=== PATIENT | female | born 1980 | race Caucasian/White ===

== ENCOUNTER 2016-05-09 15:57 | Emergency (ER) | payer MEDICAID ==
--- NOTE | 2016-05-09 16:08 | ER Document Report ---
ED Medical Screen (RME) - General Stated Complaint: RIGHT FLANK PAIN Notes: Patient complains of right flank pain 1 week. Does have a history of kidney stones, and states she has had multiple surgeries, kidney. Fever unknown, patient complains of nausea without vomiting. Patient states that her urine is very dark even though she is drinking plenty of water. I have greeted and performed a rapid initial assessment of this patient. A comprehensive ED assessment and evaluation of the patient, analysis of test results and completion of the medical decision making process will be conducted by additional ED providers. TRAVEL OUTSIDE OF THE [place] IN LAST 30 DAYS: No - Related Data Allergies/Adverse Reactions: sumatriptan [From Imitrex] Allergy (Intermediate, Verified 05/09/16 16:06) VOMITING sumatriptan succinate [From Imitrex] Allergy (Intermediate, Verified 05/09/16 16 :06) VOMITING adhesive [Adhesive] Allergy (Mild, Verified 05/09/16 16:06) Sulfa (Sulfonamide Antibiotics) Allergy (Mild, Verified 05/09/16 16:06) Hives Iodinated Contrast Media - Oral and [IV Dye, Iodine Containing] Allergy ( Verified 05/09/16 16:06) Latex, Natural Rubber Allergy (Verified 05/09/16 16:06) latex [Latex] Adverse Reaction (Mild, Verified 05/09/16 16:06) rash phenazopyridine HCl [From Pyridium] Adverse Reaction (Verified 05/09/16 16:06) VOMITING IVP DYE Allergy (Intermediate, Uncoded 05/09/16 16:06) Hives Past Medical History - Social History Family history: Reviewed & Not Pertinent - Past Medical History Cardiac Medical History: Denies: Hx Coronary Artery Disease, Hx Heart Attack Comment Only: Hx Hypertension - low Pulmonary Medical History: Reports: Hx Asthma - worse as child , Hx Bronchitis, Hx Pneumonia Denies: Hx COPD Neurological Medical History: Reports: Hx Migraine. Denies: Hx Cerebrovascular Accident, Hx Seizures Renal/ Medical History: Reports: Hx Kidney Stones Musculoskeltal Medical History: Denies Hx Arthritis Skin Medical History: Denies Hx MRSA Psychiatric Medical History: Reports: Hx Depression Past Surgical History: Reports: Hx Gynecologic Surgery - uterine polyps, Hx Kidney (Renal Surgery) - reconstructive w/ stent placement, Hx Orthopedic Surgery - right foot x4, Hx Tonsillectomy, Hx Urinary Tract Surgery - SEE ABOVE. Denies: Hx Hysterectomy, Hx Pacemaker - Immunizations Hx Diphtheria, Pertussis, Tetanus Vaccination: Yes Physical Exam - Vital signs Vitals: Temp Pulse Resp BP Pulse Ox 98.5 F 82 18 128/75 H 100 05/09/16 16:01 05/09/16 16:01 05/09/16 16:01 05/09/16 16:01 05/09/16 16:01 - General General appearance: Appears well, Alert In distress: None Course - Vital Signs Vital signs: Temp Pulse Resp BP Pulse Ox 98.5 F 82 18 128/75 H 100 05/09/16 16:01 05/09/16 16:01 05/09/16 16:01 05/09/16 16:01 05/09/16 16:01
[2016-05-09 16:53] LABS: APPEARANCE,URINE SLIGHTLY-CLOUDY; BILIRUBIN,URINE NEGATIVE (NEGATIVE); GLUCOSE, URINE NEGATIVE (NEGATIVE); KETONES,URINE 20 mg/dL (NEGATIVE); LEUKOCYTE ESTERASE,URINE NEGATIVE (NEGATIVE); NITRITE,URINE NEGATIVE (NEGATIVE); PROTEIN,URINE 30 mg/dL (NEGATIVE); URINE SPECIFIC GRAVITY 1.038; UROBILINOGEN,URINE NEGATIVE mg/dL (<2.0)
[2016-05-09] MEDS ORDERED: OXYCODONE-ACETAMINOPHEN 5-325 MG TABLET PO ONE (19:14)
[2016-05-09] MEDS ORDERED: ONDANSETRON 4 MG TAB.RAPDIS PO ONE (19:14)
--- NOTE | 2016-05-09 19:15 | ER Document Report ---
ED GI/ - General Chief Complaint: Flank Pain Stated Complaint: RIGHT FLANK PAIN Time seen by provider: 19:14 Notes: Patient is a 36-year-old female that comes emergency department for chief complaint of right flank pain that radiates around to her mid to lower abdomen, symptoms have been going on with or worsening with nausea. She denies vomiting or fever. She denies vaginal bleeding or discharge. She has a history of multiple kidney stones, has had surgeries to increase the size of her "kidney outflow", she is to see urology at [facility] next reportedly. She has had an appendectomy. TRAVEL OUTSIDE OF THE [place] IN LAST 30 DAYS: No - Related Data Allergies/Adverse Reactions: sumatriptan [From Imitrex] Allergy (Intermediate, Verified 05/09/16 16:06) VOMITING sumatriptan succinate [From Imitrex] Allergy (Intermediate, Verified 05/09/16 16 :06) VOMITING adhesive [Adhesive] Allergy (Mild, Verified 05/09/16 16:06) Sulfa (Sulfonamide Antibiotics) Allergy (Mild, Verified 05/09/16 16:06) Hives Iodinated Contrast Media - Oral and [IV Dye, Iodine Containing] Allergy ( Verified 05/09/16 16:06) Latex, Natural Rubber Allergy (Verified 05/09/16 16:06) latex [Latex] Adverse Reaction (Mild, Verified 05/09/16 16:06) rash phenazopyridine HCl [From Pyridium] Adverse Reaction (Verified 05/09/16 16:06) VOMITING IVP DYE Allergy (Intermediate, Uncoded 05/09/16 16:06) Hives Past Medical History - General Information source: Patient - Social History Smoking Status: Current Every Day Smoker Chew tobacco use (# tins/day): No Frequency of alcohol use: None Drug Abuse: None Lives with: Spouse/Significant other Family History: Reviewed & Not Pertinent Patient has suicidal ideation: No Patient has homicidal ideation: No - Past Medical History Cardiac Medical History: Denies: Hx Coronary Artery Disease, Hx Heart Attack Comment Only: Hx Hypertension - low Pulmonary Medical History: Reports: Hx Asthma - worse as child , Hx Bronchitis, Hx Pneumonia Denies: Hx COPD Neurological Medical History: Reports: Hx Migraine. Denies: Hx Cerebrovascular Accident, Hx Seizures Renal/ Medical History: Reports: Hx Kidney Stones. Denies: Hx Peritoneal Dialysis Musculoskeltal Medical History: Denies Hx Arthritis Skin Medical History: Denies Hx MRSA Psychiatric Medical History: Reports: Hx Depression Past Surgical History: Reports: Hx Gynecologic Surgery - uterine polyps, Hx Kidney (Renal Surgery) - reconstructive w/ stent placement, Hx Orthopedic Surgery - right foot x4, Hx Tonsillectomy, Hx Urinary Tract Surgery - SEE ABOVE. Denies: Hx Hysterectomy, Hx Pacemaker - Immunizations Hx Diphtheria, Pertussis, Tetanus Vaccination: Yes Review of Systems - Review of Systems Constitutional: No symptoms reported EENT: No symptoms reported Cardiovascular: No symptoms reported Respiratory: No symptoms reported Gastrointestinal: See HPI Genitourinary: See HPI Female Genitourinary: No symptoms reported Musculoskeletal: No symptoms reported Skin: No symptoms reported Hematologic/Lymphatic: No symptoms reported Neurological/Psychological: No symptoms reported Physical Exam - Vital signs Vitals: Temp Pulse Resp BP Pulse Ox 98.5 F 82 18 128/75 H 100 05/09/16 16:01 05/09/16 16:01 05/09/16 16:01 05/09/16 16:01 05/09/16 16:01 Interpretation: Normal - General General appearance: Alert In distress: None - HEENT Head: Normocephalic, Atraumatic Eyes: Normal Pupils: PERRL Mouth/Lips: Normal Mucous membranes: Normal. No: Dry Pharynx: Normal Neck: Normal - Respiratory Respiratory status: No respiratory distress Chest status: Nontender Breath sounds: Normal Chest palpation: Normal - Cardiovascular Rhythm: Regular. No: Tachycardia Heart sounds: Normal auscultation, S1 appreciated, S2 appreciated Murmur: No - Abdominal Inspection: Normal Distension: No distension Bowel sounds: Normal Tenderness: Tender - There is mild right mid to lower abdominal tenderness without guarding, otherwise soft and benign abdomen Organomegaly: No organomegaly - Back Back: CVA tenderness - Right-sided CVA tenderness, left side is unremarkable. No: Vertebra tenderness - Extremities General upper extremity: Normal inspection, Nontender, Normal color, Normal ROM , Normal temperature General lower extremity: Normal inspection, Nontender, Normal color, Normal ROM , Normal temperature, Normal weight bearing. No: Neal's sign - Neurological Neuro grossly intact: Yes Cognition: Normal Orientation: AAOx4 [place] Coma Scale Eye Opening: Spontaneous [place] Coma Scale Verbal: Oriented [place] Coma Scale Motor: Obeys Commands [place] Coma Scale Total: 15 Speech: Normal Motor strength normal: LUE, RUE, LLE, RLE Sensory: Normal - Psychological Associated symptoms: Normal affect, Normal mood - Skin Skin Temperature: Warm Skin Moisture: Dry Skin Color: Normal Course - Re-evaluation Re-evalutation: There is slight hydronephrosis on the side of patient's pain, after pain medication patient sitting up, smiling, tolerating fluids. Urine is not indicated infection, blood work is unremarkable. Patient is very well- appearing and has no fever, tachycardia, or hypotension. Patient will be discharged on symptom management, patient already has [facility] urology follow-up of her situation, discussed return precautions in detail, patient states understanding and agreement. - Vital Signs Vital signs: Temp Pulse Resp BP Pulse Ox 98.0 F 86 16 109/62 100 05/09/16 22:03 05/09/16 22:03 05/09/16 22:03 05/09/16 22:03 05/09/16 22:03 - Laboratory Result Diagrams: 05/09/16 16:20 05/09/16 16:20 Laboratory results interpreted by me: 05/09/16 05/09/16 05/09/16 16:20 16:20 16:20 RDW 14.4 H Creatinine 0.44 L Urine Protein 30 H Urine Ketones 20 H Urine Ascorbic Acid 20 H Discharge - Discharge Clinical Impression: Right flank pain Condition: Stable Disposition: HOME, SELF-CARE Additional Instructions: There are kidney stones present, there appears to be some swelling on the right kidney which is very mild, this is most likely from your ongoing outflow problem , take the medications, follow closely with [facility] urology. Return immediately if he develops any concerning worsening symptoms including fever, vomiting, severe pain, etc. Prescriptions: Hydrocodone/Acetaminophen [[place] 5-325 mg Tablet] 1 - 2 tab PO ASDIR #12 tablet Referrals: MANNY GARCIA MD [Primary Care Provider] - Follow up as needed
[2016-05-09 19:53] LABS: ABSOLUTE LYMPHOCYTES (AUTO) 1.3 10^3/uL (0.5-4.7); ABSOLUTE MONOCYTES (AUTO) 0.3 10^3/uL (0.1-1.4); ABSOLUTE NEUT (AUTO) 5.7 10^3/uL (1.7-8.2); BASOPHILS % (AUTO) 0.3 % (0-2); EOSINOPHILS % (AUTO) 0.3 % (0-6); HEMATOCRIT 36.5 % (36.0-47.0); HEMOGLOBIN 12.2 g/dL (12.0-15.5); HGB HCT DIFFERENCE 0.1; MEAN CORPUSCULAR HGB CONC 33.4 g/dL (32.0-36.0); MEAN CORPUSCULAR VOLUME 90 fl (80-97); MONOCYTES % (AUTO) 4.1 % (3-13); RED BLOOD COUNT 4.07 10^6/uL (3.72-5.28); RED CELL DISTRIBUTION WIDTH 14.4 % (11.5-14.0); SEGMENTED NEUTROPHILS % (AUTO) 77.3 % (42-78); WHITE BLOOD COUNT 7.4 10^3/uL (4.0-10.5)
[2016-05-09 20:14] LABS: ANION GAP 13 (5-19); BLOOD UREA NITROGEN 14 mg/dL (7-20); CALCIUM 10.1 mg/dL (8.4-10.2); CARBON DIOXIDE 29 mmol/L (22-30); CHLORIDE 100 mmol/L (98-107); CREATININE RESULT 0.44 mg/dL (0.52-1.25); GLUCOSE 103 mg/dL (75-110); POTASSIUM 3.8 mmol/L (3.6-5.0); SODIUM 142.4 mmol/L (137-145)
[2016-05-09] MEDS ORDERED: HYDROCODONE/ACETAMINOPHEN 5-325 MG 6 TAB/DSPK PO PRN (21:42)
[2016-05-09 22:26] VITALS: BP 109/62
== END 2016-05-09 22:07 | disposition home or self-care (01) ==
LOC: ER 15:57
DX: R10.9 Unspecified abdominal pain (principal); R10.30 Lower abdominal pain, unspecified; R11.0 Nausea; F17.200 Nicotine dependence, unspecified, uncomplicated
CPT/HCPCS: 99284; 36415; 85025; 81025; 80048; 81001; 76770; S0119

== ENCOUNTER 2016-07-24 08:34 | Emergency (ER) | payer MEDICAID ==
[2016-07-24] MEDS ORDERED: METOCLOPRAMIDE HCL ORAL SOLN 10 MG/10 ML UDCUP PO ONE (10:14)
[2016-07-24] MEDS ORDERED: MAG HYDROX/AL HYDROX/SIMETH SUSP 30 ML UDCUP PO ONE (10:14)
[2016-07-24] MEDS ORDERED: LIDOCAINE 2% VISCOUS SOLN 20 ML UDCUP PO ONE (10:14)
--- NOTE | 2016-07-24 10:24 | ER Document Report ---
ED General - General Mode of Arrival: Ambulatory Information source: Patient TRAVEL OUTSIDE OF THE [place] IN LAST 30 DAYS: No - HPI Patient complains to provider of: Abdominal pain Onset: Last week Onset/Duration: Sudden, Intermittent Associated symptoms: Diarrhea, Nausea, Vomiting <OTONIEL ROGERS - Last Filed: 07/24/16 10:18> <LINWOOD LOO - Last Filed: 08/08/16 09:24> - General Chief Complaint: Upper Abdominal Pain Stated Complaint: RIDE SIDE FLANK PAIN Time Seen by Provider: 07/24/16 09:06 Notes: Patient is a 36-year-old female with history of "kidney problems," presenting to the emergency department with chief complaint of abdominal pain after eating. Patient states that radiates from her umbilical region into her chest and shoulders. Patient also complains of right flank pain, but this is a chronic problem, and it is not different today. Patient denies any dysuria, but admits to intermittent loose stools over the weekend and vomiting 2 which she associates with overheating. (OTONIEL ROGERS) - Related Data Allergies/Adverse Reactions: sumatriptan [From Imitrex] Allergy (Intermediate, Verified 07/24/16 08:42) VOMITING sumatriptan succinate [From Imitrex] Allergy (Intermediate, Verified 07/24/16 08 :42) VOMITING adhesive [Adhesive] Allergy (Mild, Verified 07/24/16 08:42) Sulfa (Sulfonamide Antibiotics) Allergy (Mild, Verified 07/24/16 08:42) Hives Iodinated Contrast- Oral and IV Dye [IV Dye, Iodine Containing] Allergy ( Verified 07/24/16 08:42) Latex, Natural Rubber Allergy (Verified 07/24/16 08:42) latex [Latex] Adverse Reaction (Mild, Verified 07/24/16 08:42) rash phenazopyridine HCl [From Pyridium] Adverse Reaction (Verified 07/24/16 08:42) VOMITING IVP DYE Allergy (Intermediate, Uncoded 07/24/16 08:42) Hives Past Medical History - General Information source: Patient, [facility] Records - Social History Smoking Status: Never Smoker Family History: Reviewed & Not Pertinent Patient has suicidal ideation: No Patient has homicidal ideation: No - Past Medical History Cardiac Medical History: Pulmonary Medical History: Reports: Hx Asthma - worse as child , Hx Bronchitis, Hx Pneumonia Neurological Medical History: Reports: Hx Migraine Renal/ Medical History: Reports: Hx Kidney Stones Psychiatric Medical History: Reports: Hx Depression Past Surgical History: Reports: Hx Gynecologic Surgery - uterine polyps, Hx Kidney (Renal Surgery) - reconstructive w/ stent placement, Hx Orthopedic Surgery - right foot x4, Hx Tonsillectomy, Hx Urinary Tract Surgery - SEE ABOVE - Immunizations Hx Diphtheria, Pertussis, Tetanus Vaccination: Yes <OTONIEL ROGERS - Last Filed: 07/24/16 10:18> Review of Systems - Review of Systems Constitutional: No symptoms reported EENT: No symptoms reported Cardiovascular: No symptoms reported Respiratory: No symptoms reported Gastrointestinal: See HPI, Abdominal pain, Diarrhea, Nausea, Vomiting Genitourinary: See HPI, Flank pain. denies: Dysuria Female Genitourinary: No symptoms reported Musculoskeletal: No symptoms reported Skin: No symptoms reported Hematologic/Lymphatic: No symptoms reported Neurological/Psychological: No symptoms reported -: Yes All other systems reviewed and negative <OTONIEL ROGERS - Last Filed: 07/24/16 10:18> Physical Exam - General General appearance: Appears well, Alert - HEENT Head: Normocephalic, Atraumatic Eyes: Normal Pupils: PERRL - Respiratory Respiratory status: No respiratory distress Chest status: Nontender Breath sounds: Normal Chest palpation: Normal - Cardiovascular Rhythm: Regular Heart sounds: Normal auscultation Murmur: No - Abdominal Inspection: Normal - Soft Distension: No distension Bowel sounds: Normal Tenderness: Nontender Organomegaly: No organomegaly - Back Back: Normal, Nontender - Extremities General upper extremity: Normal inspection, Nontender General lower extremity: Normal inspection, Nontender - Neurological Neuro grossly intact: Yes Cognition: Normal Orientation: AAOx4 [place] Coma Scale Eye Opening: Spontaneous [place] Coma Scale Verbal: Oriented [place] Coma Scale Motor: Obeys Commands [place] Coma Scale Total: 15 Speech: Normal - Psychological Associated symptoms: Normal affect, Normal mood - Skin Skin Temperature: Warm Skin Moisture: Dry Skin Color: Normal <OTONIEL ROGERS - Last Filed: 07/24/16 10:18> Course <OTONIEL ROGERS - Last Filed: 07/24/16 10:18> - Laboratory Result Diagrams: 07/24/16 10:46 07/24/16 10:46 <LINWOOD LOO - Last Filed: 08/08/16 09:24> - Re-evaluation Re-evalutation: 07/24/16 12:37 Patient presents emergency department with a chief complaint of side pain epigastric pain and burning into her chest. She states feels like a kidney stone. She denies any flank pain or urinary symptoms. No fevers chills chest pain or shortness of breath. She has a chronic kidney problem for which she does not know the name of has seen urologist at [facility] in the past and has had multiple procedures done. Thinks that she can tell me she had 19 total CAT scans of her abdomen had 7 or 8 surgical procedures she mentions hydronephrosis but has no idea what it the condition is called does have a urologist that she saw last week. She denies any flank pain says she has chronic pain related to that and is taken numerous different pain medications for that in the past. On examination she is well- appearing nontoxic in no acute distress abdomen is soft no acute tenderness guarding rebound rigidity pulsatile mass or hurting hernia no inspiratory polyps or acute gallbladder signs. No reproducible back or flank tenderness. CBC is normal H&H are stable CMP including liver enzymes and lipase are all completely normal. She is given a GI cocktail with some improvement in the pain. Urinalysis negative for infection and . At this point I tried to contact her nurse practitioner CHERELLE and not answering I can only assume out to lunch. I did entertain the possibility of gallbladder but her belly is very soft benign no acute gallbladder findings normal LFTs normal lipase. She admits to eating nothing but greasy spicy and fatty foods but has not had a previous history of gallbladder problems. Also has burning epigastric pain like a heartburn which I gave her a GI cocktail and was started on Prilosec for. She is requesting pain medication. I told her report from the pharmacy and it looks like she had been receiving narcotics numerously up until June and then abruptly stopped. This was 1 of the reasons I would contact your primary care physician unsuccessfully. I do not think that narcotics are warranted in this condition as she is well-appearing nontoxic benign exam and normal labs and vitals. On the start her on Prilosec discharge her to follow primary care physician in 1-2 days and discussed reasons for ED return sooner (LINWOOD LOO) - Vital Signs Vital signs: Temp Pulse Resp BP Pulse Ox 98.0 F 83 16 114/63 100 07/24/16 13:05 07/24/16 13:05 07/24/16 13:05 07/24/16 13:05 07/24/16 13:05 - Laboratory Laboratory results interpreted by me: 07/24/16 07/24/16 10:28 10:46 Hgb 11.8 L Hct 35.3 L Urine Protein 30 H Urine Ascorbic Acid 20 H Discharge <OTONIEL ROGERS - Last Filed: 07/24/16 10:18> <LINWOOD LOO - Last Filed: 08/08/16 09:24> - Discharge Clinical Impression: Abdominal pain, chronic kidney problems Condition: Stable Disposition: HOME, SELF-CARE Additional Instructions: Abdominal Pain with history chronic kidney problems There are many causes of abdominal pain. Pain can mean a serious problem requiring surgery (such as appendicitis). It can also be an innocent problem that goes away on its own (such as a viral infection). Often, time must pass to determine the cause of pain. The physician does not feel that hospitalization is necessary, at present. Things may change within the next 24 hours. Call the doctor or come back for re- examination if any problems occur, such as: (1) Pain that becomes more severe, steady, or becomes concentrated in one specific area. Also, pain that is more severe with movement or coughing. (2) Vomiting that persists or becomes more frequent. (3) Blood in the vomitus, urine, or bowel movements. Blood in the stool may have a tarry or black appearance. (4) Shaking chills or fever greater than 100 degrees F. (5) The abdomen becomes more distended or swollen. (6) Bowel movements cease. (7) Failure to improve as expected. I have attempted to call your primary care physician but they are not in the office currently. I want you to call them today after 1:00 to schedule follow- up appointment in the next 1-2 days. In addition to that call your ent physician have a follow-up appointment in 2-3 days. I have given you medication to help with her stomach if there is any additional problems or concerns please return the emergency department otherwise follow primary care physician and urology Prescriptions: Omeprazole Magnesium [Prilosec Otc] 20 mg PO BID #12 tablet. Referrals: CRISTOFER VILLARREAL FNP [Primary Care Provider] - Follow up as needed Scribe Attestation: 07/24/16 12:42 I personally performed the services described in the documentation reviewed the documentation recorded by my scribe in my presence and it accurately and completely records my words and actions (LINWOOD LOO) Scribe Documentation - Scribe Written by Rik:: Rik Rinaldi, 07/24/2016 [id number] acting as scribe for :: Cayetano <OTONIEL ROGERS - Last Filed: 07/24/16 10:18>
[2016-07-24 11:13] LABS: APPEARANCE,URINE CLEAR; BILIRUBIN,URINE NEGATIVE (NEGATIVE); GLUCOSE, URINE NEGATIVE (NEGATIVE); KETONES,URINE NEGATIVE (NEGATIVE); URINE SPECIFIC GRAVITY 1.029
[2016-07-24 11:14] LABS: LEUKOCYTE ESTERASE,URINE NEGATIVE (NEGATIVE); NITRITE,URINE NEGATIVE (NEGATIVE); PROTEIN,URINE 30 mg/dL (NEGATIVE); RBC,URINE NONE SEEN /HPF; UROBILINOGEN,URINE NEGATIVE mg/dL (<2.0); WBC,URINE 0-1 /HPF
[2016-07-24 11:22] LABS: ABSOLUTE EOSINOPHILS # (AUTO) 0.1 10^3/uL (0.0-0.6); ABSOLUTE LYMPHOCYTES (AUTO) 1.3 10^3/uL (0.5-4.7); ABSOLUTE MONOCYTES (AUTO) 0.4 10^3/uL (0.1-1.4); BASOPHILS % (AUTO) 0.3 % (0-2); EOSINOPHILS % (AUTO) 1.5 % (0-6); HEMATOCRIT 35.3 % (36.0-47.0); HEMOGLOBIN 11.8 g/dL (12.0-15.5); HGB HCT DIFFERENCE 0.1; LYMPHOCYTES % (AUTO) 19.3 % (13-45); MEAN CORPUSCULAR HEMOGLOBIN 30.2 pg (27.0-33.4); MEAN CORPUSCULAR HGB CONC 33.3 g/dL (32.0-36.0); MEAN CORPUSCULAR VOLUME 91 fl (80-97); MONOCYTES % (AUTO) 5.3 % (3-13); RED BLOOD COUNT 3.89 10^6/uL (3.72-5.28); RED CELL DISTRIBUTION WIDTH 13.8 % (11.5-14.0); SEGMENTED NEUTROPHILS % (AUTO) 73.6 % (42-78); WHITE BLOOD COUNT 6.7 10^3/uL (4.0-10.5)
[2016-07-24 11:29] LABS: URINE BARBITURATES SCREEN NEGATIVE; URINE METHADONE SCREEN NEGATIVE; URINE OPIATES LOW NEGATIVE; URINE PHENCYCLIDINE SCREEN NEGATIVE
[2016-07-24 11:44] LABS: ALANINE AMINOTRANSFERASE 29 U/L (9-52); ALBUMIN 4.3 g/dL (3.5-5.0); ALKALINE PHOSPHATASE 84 U/L (38-126); ANION GAP 12 (5-19); ASPARTATE AMINO TRANSFERASE 18 U/L (14-36); BILIRUBIN,DIRECT 0.3 mg/dL (0.0-0.4); BILIRUBIN,TOTAL 0.4 mg/dL (0.2-1.3); BLOOD UREA NITROGEN 9 mg/dL (7-20); CALCIUM 9.6 mg/dL (8.4-10.2); CARBON DIOXIDE 26 mmol/L (22-30); CHLORIDE 104 mmol/L (98-107); CREATININE RESULT 0.61 mg/dL (0.52-1.25); GLUCOSE 82 mg/dL (75-110); LIPASE 34.8 U/L (23-300); POTASSIUM 4.9 mmol/L (3.6-5.0); SODIUM 141.6 mmol/L (137-145); TOTAL PROTEIN 7.4 g/dL (6.3-8.2)
[2016-07-24 13:06] VITALS: BP 114/63
== END 2016-07-24 13:35 | disposition home or self-care (01) ==
LOC: ER 08:34
DX: N28.9 Disorder of kidney and ureter, unspecified (principal); R10.9 Unspecified abdominal pain; R19.7 Diarrhea, unspecified; R11.2 Nausea with vomiting, unspecified; G89.29 Other chronic pain; Z88.2 Allergy status to sulfonamides; Z91.040 Latex allergy status; Z91.041 Radiographic dye allergy status
CPT/HCPCS: 99284; 36415; 83690; 85025; 81025; 80053; 81001; 80307; J3490 ×3